=== PATIENT | male | born 1945 ===

== ENCOUNTER 2018-05-09 18:34 | Emergency (ER) | payer OTHER, SELFPAY ==
[2018-05-09] VITALS (18 sets, daily range): BP systolic 137–165; BP diastolic 55–118; PULSE 72–91; RESP 12–30; TEMP 37.1; O2SAT 95–100
--- NOTE | 2018-05-09 18:33 | DI.RAD_ITS ---
SYMPTOM/DIAGNOSIS: LT HIP PAIN, ? DISLOCATION, S/P REDUCTION OF DISLOCATION AP PELVIS: A bilateral total hip prosthesis is demonstrated. There is superior dislocation of the left hip joint prosthesis is noted. There is no evidence of a displaced fracture. The soft tissues are unremarkable. SUMMARY: Dislocation left hip prosthesis. AP PELVIS: The post reduction examination reveals reduction of the left hip dislocation. No fracture is seen.
[2018-05-09] MEDS: fentaNYL 100 MCG/2 ML VIAL IVP (18:35)
--- NOTE | 2018-05-09 18:49 | ED.GENADUL_ITS ---
Discharge Plan Disposition Patient Disposition: STILL A PATIENT Condition: Stable Discharge Details Chief Complaint: Orthopedic Clinical Impression: Dislocation of internal left hip prosthesis [facility] Provider: Jerardo David Discharge Instructions Instructions: Hip Dislocation (ED) Additional Instructions: Activity: You should keep the knees wider than the hips to protect the hip replacement. You have a knee immobilizer to limit knee flexion which will limit hip flexion to prevent further dislocation. You should use an assitive device for the first 2 weeks. Always keep the knees wider than the hips. Follow-up: 2 weeks Medical Decision Making MDM Narrative Medical decision making narrative: 72 yo male with hx of bilateral hip replacements and prior hip dislocations was walking his dog, bent down to pick something up and had onset of severe left hip pain. NO head trauma or loc. I suspect based on his exam he has a hip dislocation, will xray xray confirms dislocation , orthopedics consulted and will plan on closed reduction using procedural sedation, pt agrees with plan and consents to this being done. Pt tolerated procedure well after 250mg propofol IVP given, intact distal senation and pulses and xray confirms successful reduction. Once he is able to ambulate will d/c home. Pt will be signed out to Dr. Leigh pending him being able to ambulate Differential Diagnosis hip dislocation, fx Imaging Data Radiologic Study: Attestation: I personally reviewed and interpreted this imaging study as follows: Imaging: X-Ray My impression: left hip dislocation Radiologist's impression: vrad report reviewed Radiologic Study #2: Attestation: I personally reviewed and interpreted this imaging study as follows: Imaging: X-Ray My impression: successful reduction of left hip prosthesis HPI - General Adult General Mode of arrival: EMS . Date/Time Provider Initiated Documentation: 05/09/18 18:41 . Limitations to Documentation: no limitations . Information obtained by: patient . History of Present Illness 72 year old M presents to the emergency department with the chief complaint of left hip pain, described as severe, with intensity rated at 10. Quality is described as aching, and is localized to the left and lower extremity. Patient reports no radiation. Patient started experiencing this hour(s) (2) and it has been constant. No relieving factors improve symptom(s), No exacerbating factors reported . Patient notes no other symptoms.. Patient did receive the following treatments prior to arrival, none Review of Systems Review of Systems All systems reviewed & are unremarkable except as noted in HPI and below Constitutional Denies chills, Denies fever(s) and Denies weakness Eyes Patient Denies loss of vision ENT Denies change in voice Cardiovascular Denies chest pain and Denies dyspnea Respiratory Denies dyspnea Gastrointestinal Denies abdominal pain, Denies nausea and Denies vomiting Genitourinary Denies dysuria Musculoskeletal Denies joint swelling Integumentary/Breasts Denies rash Neurologic Denies loss of vision and Denies weakness Psychiatric Denies depression Endocrine Denies cold intolerance and Denies heat intolerance Allergic/Immunologic Reports urticaria Exam Const General: no acute distress Orientation: alert HENMA Head: normal to inspection Ears: external ears normal General nose exam: external nose normal Mouth: moist mucous membranes Eyes General: appearance normal, both eyes and all related structures Neck Neck: normal visual inspection Resp Effort & Inspection: normal respiratory effort and able to speak in complete sentences Cardio Rate: regular rate Skin General skin exam: no rashes or lesions noted Neuro General: alert and oriented x3 Extrem General: normal capillary refill and other (no movement of left hip due to pain , normal intact distal sensation and pulses) Psych Mental Status: mental status grossly normal Procedures Procedural Sedation Indication: fracture/dislocation reduction ASA Class: III Time of Last PO Intake: 17:00 Preparation: monitoring specialist applied, pulse oximeter, supplemental O2 applied, suction/airway equipment at bedside and IV secured Fentanyl: IV IV Propofol dose (mg): 250 Patient Tolerated Procedure: well Complications: none
--- NOTE | 2018-05-09 18:57 | DI.VRAD_ITS ---
EXAM: XR Pelvis, 1 or 2 Views CLINICAL HISTORY: 72 years old, male; Pain; Hip pain; Left hip; Prior surgery; Surgery date: 6+ months TECHNIQUE: Frontal view of the pelvis. COMPARISON: No relevant prior studies available. FINDINGS: Bones/joints: Bilateral total hip prostheses. Superior dislocation of the left hip joint prosthesis. No displaced fracture. Soft tissues: Unremarkable. IMPRESSION: Dislocated left hip prosthesis. Dictated and Authenticated by: Raul Flaherty MD. Ordering:PHILIP CHI MD
[2018-05-09] MEDS: Propofol 200 MG/20 ML VIAL 80 MG IVP (19:17)
--- NOTE | 2018-05-09 19:25 | DI.VRAD_ITS ---
EXAM: XR Pelvis, 1 or 2 Views CLINICAL HISTORY: 72 years old, male; Pain; Hip pain; Left hip; Prior surgery; Surgery date: 6+ months; Patient HX: Post reduction TECHNIQUE: Frontal view of the pelvis. COMPARISON: CR XR pelvis AP 05/09/2018 6:33 PM FINDINGS: Bones/joints: Status post reduction of left hip prosthesis. The head of the femoral stem component is superimposed centrally over the acetabular cup. Dictated and Authenticated by: Raul Flaherty MD. Ordering:PHILIP CHI MD
--- NOTE | 2018-05-09 21:26 | W.ORTHOCONSU ---
Date of service: 05/09/18 Time of Service: 18:26 History of Present Illness Chief Complaint: Left Hip Pain and Deformity Narrative: Jorge is a 72-year-old who was walking his dog in [place]. He bent over to pick something up and felt immediate pain and a pop in his left hip. He noted deformity of the left leg was unable to ambulate. Eventually, he was able to get help to the area and he was extricated out of the [place] and brought to the emergency department. At that time he was diagnosed with a left hip dislocation. He reported excruciating pain. He had muscle spasms. He denied any numbness or tingling of the left lower leg. He denies any other trauma. He had a hip replacement performed about 5 or [address] [facility]. He has had a previous dislocation in July of this past year. Otherwise, he has had no issues with the hip. He denies antecedent pain or trauma. Consults Consult date: 05/09/18 Requesting physician: Jerardo David Consult Reason Left hip dislocation Assessment and Plan (1) Dislocation of internal left hip prosthesis: Start date: 05/09/18 Current visit: No Status: Acute Jorge is a 72-year-old who unfortunately has suffered a second dislocation of his left total hip prosthesis. There is able to be reduced without much difficulty after conscious sedation administration by Dr. David. I advised Jorge he will be able to ambulate afterwards. He should use an assistive device until his muscles and soft tissues have a chance to heal. He should keep his knees wider than his hips at all times. To further emphasizes I did place him into a knee immobilizer to prevent excessive hip flexion. His neurovascular exam is intact after reduction. He will follow-up in [place] with his initial surgeon. Review of Systems Review of Systems All systems reviewed & are unremarkable except as noted in HPI and below Exam Narrative Exam Narrative: Jorge is in obvious distress lying supine in the stretcher. His left leg is shortened and significantly internally rotated and adducted. There are no breaks in the skin. There are no signs of ecchymosis. The greater tuberosity is quite prominent. The incision is benign. He endorses full sensation over the superficial and deep peroneal nerves as well as the tibial nerve. He is able to dorsiflex and plantarflex the ankle as well as extend and flex the great toe. The foot is warm and well perfused. There is no crepitus to palpation of the left lower extremity. No pain to palpation anywhere except the proximal left hip. Results Imaging Imaging Studies: X-ray of the left hip on arrival into the emergency department displays a superior dislocation of a left total hip. There is no apparent fracture. Procedures Orthopedic Joint Reduction Left Hip: Time out performed: Yes Side: left Joint reduction location: hip Analgesia: procedural sedation Technique used: direct manipulation Post-reduction neuro exam: intact Post-reduction vascular exam: intact Post-reduction x-ray obtained: Yes Post-reduction x-ray results: reduced Splint applied: Yes (Knee immobilizer as well as pillow between knees for abduction) Patient tolerated procedure: well
== END 2018-05-09 21:06 | disposition still patient (30) ==
PROVIDERS: Emergency Provider Emergency Medicine
DX: T84.021A Dislocation of internal left hip prosthesis, initial encounter (principal); Y83.1 Surgical operation with implant of artificial internal device as the cause of abnormal reaction of the patient, or of later complication, without mention of misadventure at the time of the procedure; Z96.643 Presence of artificial hip joint, bilateral
CPT/HCPCS: 27265; 29505; 96374; 96375; 99253; 99283; 99285; 72170; 99284; L1830

== ENCOUNTER → 2018-05-11 09:58 | Outpatient (BNVA) | payer MEDICARE, SELFPAY | PROVIDERS: Visit Provider Student in an Organized Health Care Education/Training Program | DX: R69 Illness, unspecified (principal) ==

== ENCOUNTER 2021-04-02 19:32 | Emergency (ER) | payer OTHER, SELFPAY ==
[2021-04-02] VITALS (61 sets, daily range): BP systolic 69–132; BP diastolic 14–103; PULSE 58–77; RESP 7–49; TEMP 36.5; O2SAT 87–100
--- NOTE | 2021-04-02 19:30 | RT.EKG_ITS ---
APPROVED REPORT Exam: Resting ECG Reason for Exam: unresponsive Patient Location: E HR:69 bpm ECG Measurements Heart Rate 69 AXIS NJ 194 P 47 QRSd 152 QRS -78 QT 445 T 81 QTc 477 Conclusion Sinus rhythm...normal P axis, V-rate 60- 99 IVCD, consider RBBB...QRSd>120mS, terminal axis(90,270)
[2021-04-02] MEDS: Rocuronium 50 MG/5 ML SYR 70 MG IVP (19:41)
[2021-04-02] MEDS: Normal Saline 1,000 ML 1000 ML IV (19:45)
--- NOTE | 2021-04-02 20:00 | DI.CT_ITS ---
Exam(s) CT HEAD CERVICAL SPINE WO EXAM: CT HEAD CERVICAL SPINE WO CLINICAL HISTORY: cardiac arrest, altered. TECHNIQUE: Imaging Protocol: Axial computed tomography images with coronal and sagittal reformatted images were created and reviewed COMPARISON: No exams were available for comparison FINDINGS: BRAIN: There has been right sided fronto temporal craniotomy. Aneurysm clip seen in the right-side of the s uprasellar region. There is no evidence of intracranial hemorrhage, mass effect, or shift of midline structures. No ext ra-axial fluid collections. Ventricles upper normal size. Impression there is an oblong metallic de nsity in the right suprasellar region which is most probably an aneurysm clip. No evidence of acute intracranial hemorrhage. Postoperative right frontal temporal craniotomy plates and screws noted. N o acute intracranial hemorrhage. CERVICAL SPINE: There is no evidence of fracture nor listhesis. No significant prevertebral soft tissue swelling. Multilevel chronic degenerative disc disease and degenerative facet arthropathy. There is no significant facet joint malalignment. No significant osseous lesions evident. IMPRESSION: Right suprasellar region aneurysm clip.Previous right craniotomy. No acute intracranial findings. Multilevel degenerative changes in the cervical spine. No evidence of cervical spine fracture, malalignment, nor acute compromise of the cervical spinal can al. RADIATION DOSE DELIVERED: 1,282.45mGy.cm Total DLP DATA REPOSITORY: All CT scans at this facility are submitted to the National Radiology Data Registry (NRDR) Dose Index Registry (DIR) with the [employer] ([employer]). RADIATION OPTIMIZATION: All CT scans at this facility use at least one of these dose optimization te chniques: automated exposure control; mA and/or kV adjustment per patient size (includes targeted exa ms where dose is matched to clinical indication); or iterative reconstruction.
--- NOTE | 2021-04-02 20:03 | DI.CT_ITS ---
Exam(s) CT CHEST/ABD/PEL WO EXAM: CT CHEST/ABD/PEL WO CLINICAL HISTORY: altered, cardiac arrest. TECHNIQUE: Imaging Protocol: Axial computed tomography images with coronal and sagittal reformatted images were created and reviewed CONTRAST MATERIAL: Intravenous: none Oral: None COMPARISON: No exams were available for comparison FINDINGS: CHEST: LUNGS: Patient is intubated distal tip of the endotracheal tube in satisfactory position above the ca connie.. There is also an NG tube in place. Its distal tip is in the distal stomach pylorus region an d probably should be retracted into the body of the stomach.. There is a small loculated pneumothorax posterior lower right side. Atelectasis atelectasis is evide nt in the right middle lobe. Also in the posterior basal aspect of the lower lobes. No prominent pl eural effusions. There is mucous at the sharmaine and in both mainstem bronchi. MEDIASTINUM: Small mediastinal retrosternal hematoma. Visualized thyroid unremarkable. CARDIAC: Cardiomegaly. Pacemaker wires. No pericardial effusion.Caliber of the thoracic aorta is wi thin normal limits. OSSEOUS: Subtle fracture of left 3rd rib. Fracture of the anterior left 4th rib. Subtle nondisplace d sternal fracture.. ABDOMEN: There is a tiny bit perihepatic ascites. NG tube is in the distal stomach pylorus region and should be retracted a few cm. LIVER: There are no obvious focal hepatic lesions evident of this noninfused study. GALLBLADDER/BILIARY: Gallbladder surgically absent. CBD is not dilated. PANCREAS: No evidence of obvious pancreatic mass nor dilatation of the pancreatic duct. SPLEEN: Spleen is not enlarged. No obvious intrasplenic lesions. ADRENALS: There are no significant adrenal masses. KIDNEYS: Kidney cysts. The largest in the left kidney measures 3 cm.. No solid renal masses. No ca lculi nor hydronephrosis. ABDOMINAL AORTA: Abdominal aorta is not enlarged. LYMPH NODES: There is no retroperitoneal nor para-aortic adenopathy. ABDOMINAL WALL/GI: No evidence of signature anterior abdominal wall hernia. No bowel obstruction. PELVIS: LYMPH NODES: There is no intrapelvic nor inguinal adenopathy. GI: No evidence of appendicitis.Sigmoid diverticulosis. There is also evidence of acute diverticulit is.. Cannot rule out neoplasm in the sigmoid at this level. There is no abscess at this level altho ugh there is abundant beam hardening artifact from bilateral hip prosthesis obscuring part of this ar ea. Stewart catheter is noted in the bladder. URINARY BLADDER: Obscured by beam hardening artifact from bilateral hip prostheses. There is a Stewart catheter in the nondistended urinary bladder. REPRODUCTIVE: Prostate partially obscured OSSEOUS: No significant osseous lesions. IMPRESSION: 1. There is abnormal thickening of an area of sigmoid consistent with diverticulosis/diverticulitis a nd possible mass. This requires follow-up including colonoscopy. 2. Benign renal cysts. 3. Small amount of ascites. 4. Stewart catheter in the bladder. Bladder is obscured by beam hardening artifact from bilateral hip prostheses. 5. Acute fractures of the left 3rd and 4th ribs as well as nondisplaced sternal fracture. Small don unt of retrosternal mild hemorrhage. Small loculated right base pneumothorax. Atelectasis right middle lobe. Also bilaterally. Multifocal bilateral mucous in the mainstem bronch i and more distal bronchi. RADIATION DOSE DELIVERED: 1,120.43mGy.cm Total DLP DATA REPOSITORY: All CT scans at this facility are submitted to the National Radiology Data Registry (NRDR) Dose Index Registry (DIR) with the [employer] (ACR). RADIATION OPTIMIZATION: All CT scans at this facility use at least one of these dose optimization te chniques: automated exposure control; mA and/or kV adjustment per patient size (includes targeted exa ms where dose is matched to clinical indication); or iterative reconstruction.
[2021-04-02 20:07] LABS: Source Nasal/Nares
[2021-04-02 20:08] LABS: Abs Immature Grans 0.31 10^3/uL (0.0-0.06); Absolute Basophil Count 0.04 10^3/uL (0.0-0.2); Absolute Monocyte Count 1.06 10^3/uL (0.1-0.8); Basophils % 0.3; Eosinophils % 0.1; HCT 44.7 % (40.0-50.0); Immature Grans % 2.2; Lymphocytes % 12.7; MCH 31.7 pg (27.0-33.0); MCHC 31.3 % (32.0-36.0); MCV 101.1 fL (80-95); MPV 10.1 fL (8.0-11.0); Monocytes % 7.4; Neutrophils % 77.3; Nucleated RBC 0 %; Platelet Count 200 10^3/uL (130-400); RBC 4.42 10^6/uL (4.36-5.78); RDW 13.7 % (11.8-14.1); WBC 14.29 10^3/uL (4.4-10.8)
--- NOTE | 2021-04-02 20:15 | DI.RAD_ITS ---
Exam(s) XR PORTABLE CHEST AP EXAM: XR PORTABLE CHEST AP CLINICAL HISTORY: post intubat. TECHNIQUE: 2D digital imaging was performed. COMPARISON: No exams were available for comparison FINDINGS: Chest leads in place. There is an NG tube in place. Distal tip of the endotracheal tube is in [employer] position above the sharmaine. Bipolar left subclavian pacemaker lead tips in are in RV noted. Right chest pad noted. Heart size is normal. The mediastinum is not widened. No prominent infiltrates nor pleural effusions. No pneumothorax. Multiple healed left-sided rib fra ctures are noted. IMPRESSION: No acute pulmonary findings on this single AP portable view of the chest. ETT and NG tube are in satisfactory position DATA REPOSITORY: RADIATION DOSE DELIVERED: All CT scans at this facility use at least one of these dose optimization techniques: automated exposure control; mA and/or kV adjustment per patient size (includes targeted e xams where dose is matched to clinical indication); or iterative reconstruction.
[2021-04-02 20:20] LABS: Absolute Eosinophil Count 0.01 10^3/uL (0.0-0.7); Absolute Lymphocyte Count 1.81 10^3/uL (1.2-3.4); Absolute Neutrophil Count 11.05 10^3/uL (1.2-6.7)
[2021-04-02 20:24] LABS: ALT 259 U/L (16-63); AST 503 U/L (15-37); Albumin 3.7 g/dL (3.4-5.0); Alkaline Phosphatase 167 U/L (46-116); Anion Gap 1.5 mmol/L (3-11); BUN 18 mg/dL (7-18); Bilirubin, Total 1.1 mg/dL (0.2-1.0); CO2 29.5 mmol/L (21.0-32.0); CREATININE 2.7 mg/dL (0.70-1.30); Calcium 8.1 mg/dL (8.5-10.1); Chloride 104 mmol/L (98-107); Estimated GFR 23.28 (mL/min/1.73m2); Glucose 144 mg/dL (74-106); Magnesium 2.5 mg/dL (1.8-2.4); Sodium 135 mmol/L (136-145); Total Protein 7.4 g/dL (6.4-8.2)
[2021-04-02 20:25] LABS: Potassium 8.5 mmol/L (3.5-5.1)
[2021-04-02] MEDS: PROPOFOL 500 MG/50 ML BTL 17.784 MG IVPB (20:25)
[2021-04-02 20:26] LABS: INR 1.2 (0.9-1.1); Prothrombin Time 11.8 sec (9.3-11.0)
[2021-04-02 20:28] LABS: Troponin I 0.12 ng/mL (<0.06)
[2021-04-02 20:32] LABS: *AMPHETAMINES SCREEN URINE Negative (Negative); *BARBITURATES SCREEN URINE Negative (Negative); *BENZODIAZEPINES SCREEN URINE Positive (Negative); Cannabinoids THC Positive (Negative); Cocaine Screen,Urine Negative (Negative); METHADONE URINE SCREEN Negative (Negative); OPIATES URINE SCREEN Positive (Negative)
[2021-04-02 20:33] LABS: Tricyclic Antidepressants Negative (Negative)
[2021-04-02 20:36] LABS: BE (Venous) -4 mmol/L (-2-3); HCO3 (Venous) 26 mmol/L (23-28); O2 Sat (Venous) 44 %; TCO2 (Venous) 26 mmol/L (24-29); pO2 (Venous) 30 mmHg
[2021-04-02 20:39] LABS: pCO2 (Venous) 96 mmHg (41-51); pH (Venous) 7.05 (7.31-7.41)
[2021-04-02 20:41] LABS: ETHANOL BLOOD < 3.0 mg/dL (<3)
[2021-04-02 20:59] LABS: COVID-19 PCR Negative (Negative)
--- NOTE | 2021-04-02 21:10 | DI.VRAD_ITS ---
PROCEDURE INFORMATION: Exam: XR Chest Exam date and time: 04/02/2021 8:21 PM Age: 75 years old Clinical indication: Other: Post intubate TECHNIQUE: Imaging protocol: XR of the chest. Views: 1 view. COMPARISON: No relevant prior studies available. FINDINGS: Tubes, catheters and devices: There is an endotracheal tube in place with the tip residing 5.6 cm proximal to the sharmaine. There is a nasogastric tube which extends at least to the gastric fundus. Lungs: The lungs are clear. There is no pulmonary vascular congestion. Pleural spaces: There are no pleural effusions present. There is no evidence of pneumothorax. Heart/Mediastinum: The cardiomediastinal silhouette is within normal limits. Bones/joints: There appears to be at least partial absence of the left 9th rib. There are multiple old healed left posterolateral rib fractures. IMPRESSION: 1. Endotracheal tube and nasogastric tube as described above. 2. No active cardiopulmonary disease identified. Dictated and Authenticated by: Clarence Marley MD. Ordering:ROLF Camarena MD
--- NOTE | 2021-04-02 21:25 | ED.GENADUL_ITS ---
Discharge Plan Discharge Details Chief Complaint: AMS/LOC Primary Care Provider: None,None ED Provider: Migue Lin Home Meds and New Rx's Prescriptions: No Action Unable to Obtain RF: 0 Medical Decision Making 75-year-old male arrives unresponsive post cardiac arrest with ROSC. Patient with palpable radial pulse low normal blood pressure and a normal sinus rhythm on arrival. Patient unresponsive GCS 3. Patient seen immediately on arrival. iGel in place. I have removed the patient was intubated to protect his airway. Intubation was performed without difficulty without hypoxia. Chest x-ray postintubation reviewed and interpreted by radiology: Endotracheal tube tip at 5.6 cm above the sharmaine. Will advance 1 cm. EKG was reviewed and interpreted by me: Sinus rhythm 69 bpm, right bundle branch block is present. Patient hypotensive and being hemodynamically supported with Levophed with goal map of 65. Patient initially with propofol drip although this was titrated down and converted to Versed given hypotension. CT of the head to assess for intracranial hemorrhage. CT of the chest abdomen pelvis without contrast given GFR to assess for acute surgical pathology. Labs reviewed: VBG consistent severe respiratory acidosis. Elevated troponin. Leukocytosis. Hyperkalemia severe. Elevated creatinine and decreased GFR of 23. Urinalysis concerning for opiates, benzodiazepines, and THC. I will give calcium gluconate, sodium bicarb, insulin 10 units subcutaneous and glucose for severe hyperkalemia. 2144 --on reassessment, patient is following some simple commands. Patient has received total 1500mL crystalloid at this point. --I called and spoke with critical care team at [facility], discussed ED presentation course including diagnostics, they will accept the patient in transfer, accepting physician is Dr. Paul. --CT of the chest reviewed and interpreted by radiology: IMPRESSION: 1. Acute fractures of the left anterior 3rd and 4th ribs, as described above. 2. Acute nondisplaced sternal fracture. There is mild hemorrhage within the anterior mediastinum just posterior to the sternum. 3. Small loculated right basilar pneumothorax. 4. Multifocal bilateral mucous plugging, as described above. Multifocal regions of mild atelectasis. CT of the abdomen and pelvis interpreted by radiology: IMPRESSION: 1. No acute process within the abdomen or pelvis. 2. Distal colonic diverticulosis without clear evidence for diverticulitis. 3. Segmental colonic wall thickening of the proximal aspect of the sigmoid colon could be related to underlying diverticulosis but cannot exclude colonic neoplasm on this exam. Recommend further evaluation with colonoscopy. 4. Small ascites. 5. Renal cysts. CT of the head interpreted by radiology: IMPRESSION: 1. No acute intracranial process identified. 2. Moderate diffuse cerebral volume loss. 3. 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 CT of the cervical spine interpreted by radiology: No acute fractures or subluxation. covid neg. 9 --multiple calls to regional EMS transport agencies and not available to provide interfacility transfer. [facility] air ambulance requested and in route to transport patient to [facility] 2300 --patient having some agitation. Ketamine 1 mg/kg was administered. HPI General Mode of arrival: EMS . Date/Time Provider Initiated Documentation: 04/02/21 19:49 . Limitations to Documentation: altered mental status . Information obtained by: EMS . HPI Narrative: 75-year-old male arrives with EMS post cardiac arrest. Patient was found unresponsive in a motor vehicle with friend/family. Childcare Director EMS noted he was pulseless and started CPR, CPR was performed for 8 to 10 minutes and he had return of spontaneous circulation. No meds were given. I gel was placed. IO was placed right proximal tibia. Additional history obtained from family who notes that he had a some edibles earlier today. Related Data Home Medications Medication Instructions Recorded Confirmed Unknown [Unable to Obtain] 04/02/21 04/02/21 Allergies Allergy/AdvReac Type Severity Reaction Status Date / Time apricot Allergy Intermediate Hives Unverified 04/02/21 22:47 prochlorperazine AdvReac Intermediate Other (See Unverified 04/02/21 22:47 [From Compazine] Comment) General Stated Complaint: AMS/LOC BANG: 1 Review of Systems Unobtainable due to endotracheal tube and Unobtainable due to mental status [facility] Medical History Dislocation of internal left hip prosthesis Social History Smoking risk assessment performed?: No Drug use: Never Do you feel safe in your relationship?: Yes Exam Const General: ill appearing Orientation: other (Unresponsive) HENMT Other: I gel intact Eyes Pupils: fixed and pupil size bilaterally (3) Neck Neck: trachea midline and supple Resp Auscultation: rhonchi lower bilaterally Cardio Rate: regular rate and not tachycardic Rhythm: regular rhythm GI Palpation: soft, not firm and no masses Skin General skin exam: no rashes or lesions noted Neuro General: tone abnormal and other (Unresponsive) Cognition: abnormal cognition Other: GCS 3 Extrem General: no edema Course Vital Signs Vital signs: Vital Signs Temperature 36.5 C 04/02/21 19:52 Pulse 75 04/02/21 19:52 Respiratory Rate 12 04/02/21 19:52 Blood Pressure 87/50 L 04/02/21 19:52 Pulse Oximetry 100 04/02/21 19:52 Temperature 36.5 C 04/02/21 19:52 Temperature Source Skin 04/02/21 19:52 Pulse 75 04/02/21 19:52 Respiratory Rate 12 04/02/21 19:52 Blood Pressure 87/50 L 04/02/21 19:52 Pulse Oximetry 100 04/02/21 19:52 Oxygen Delivery Method Ambu-Bag 04/02/21 19:52 Oxygen Flow Rate 15 04/02/21 19:52 Lab/Test Results Lab/Test Results: Laboratory Tests Range/Units 04/02/21 04/02/21 04/02/21 19:30 19:30 19:30 WBC (4.4-10.8) 10^3/uL 14.29 H RBC (4.36-5.78) 10^6/uL 4.42 Hgb (13.5-17.5) g/dL 14.0 Hct (40.0-50.0) % 44.7 MCV (80-95) fL 101.1 H MCH (27.0-33.0) pg 31.7 MCHC (32.0-36.0) % 31.3 L RDW (11.8-14.1) % 13.7 Plt Count (130-400) 10^3/uL 200 MPV (8.0-11.0) fL 10.1 Immature Gran % 2.2 Neutrophils % 77.3 Lymphocytes % 12.7 Monocytes % 7.4 Eosinophils % 0.1 Basophils % 0.3 Nucleated RBC % % 0 Absolute Neutrophils (1.2-6.7) 10^3/uL 11.05 H Absolute Lymphocytes (1.2-3.4) 10^3/uL 1.81 Absolute Monocytes (0.1-0.8) 10^3/uL 1.06 H Absolute Eosinophils (0.0-0.7) 10^3/uL 0.01 Absolute Basophils (0.0-0.2) 10^3/uL 0.04 PT (9.3-11.0) sec 11.8 H INR (0.9-1.1) 1.2 H VBG pH (7.31-7.41) VBG pCO2 (41-51) mmHg VBG pO2 mmHg VBG HCO3 (23-28) mmol/L VBG Total CO2 (24-29) mmol/L VBG O2 Saturation % VBG Base Excess (-2-3) mmol/L Sodium (136-145) mmol/L 135 L Potassium (3.5-5.1) mmol/L 8.5 H* Chloride (98-107) mmol/L 104 Carbon Dioxide (21.0-32.0) mmol/L 29.5 Anion Gap (3-11) mmol/L 1.5 L BUN (7-18) mg/dL 18 Creatinine (0.70-1.30) mg/dL 2.7 H Estimated GFR/1.73 m2 (mL/min/1.73m2) 23.28 Glucose (74-106) mg/dL 144 H Calcium (8.5-10.1) mg/dL 8.1 L Magnesium (1.8-2.4) mg/dL 2.5 H Total Bilirubin (0.2-1.0) mg/dL 1.1 H AST (15-37) U/L 503 H ALT (16-63) U/L 259 H Alkaline Phosphatase (46-116) U/L 167 H Troponin I (<0.06) ng/mL 0.12 H* Total Protein (6.4-8.2) g/dL 7.4 Albumin (3.4-5.0) g/dL 3.7 Urine Opiates Screen (Negative) Urine Methadone Screen (Negative) Ur Barbiturates Screen (Negative) Ur Tricyclics Screen (Negative) Ur Amphetamines Screen (Negative) U Benzodiazepines Scrn (Negative) Urine Cocaine Screen (Negative) Ur THC Screen (Negative) Ethyl Alcohol (<3) mg/dL < 3.0 COVID-19 Source SARS-CoV-2 (PCR) (Negative) Range/Units 04/02/21 04/02/21 04/02/21 19:52 19:53 20:30 WBC (4.4-10.8) 10^3/uL RBC (4.36-5.78) 10^6/uL Hgb (13.5-17.5) g/dL Hct (40.0-50.0) % MCV (80-95) fL MCH (27.0-33.0) pg MCHC (32.0-36.0) % RDW (11.8-14.1) % Plt Count (130-400) 10^3/uL MPV (8.0-11.0) fL Immature Gran % Neutrophils % Lymphocytes % Monocytes % Eosinophils % Basophils % Nucleated RBC % % Absolute Neutrophils (1.2-6.7) 10^3/uL Absolute Lymphocytes (1.2-3.4) 10^3/uL Absolute Monocytes (0.1-0.8) 10^3/uL Absolute Eosinophils (0.0-0.7) 10^3/uL Absolute Basophils (0.0-0.2) 10^3/uL PT (9.3-11.0) sec INR (0.9-1.1) VBG pH (7.31-7.41) 7.05 L* VBG pCO2 (41-51) mmHg 96 H* VBG pO2 mmHg 30 VBG HCO3 (23-28) mmol/L 26 VBG Total CO2 (24-29) mmol/L 26 VBG O2 Saturation % 44 VBG Base Excess (-2-3) mmol/L -4 L Sodium (136-145) mmol/L Potassium (3.5-5.1) mmol/L Chloride (98-107) mmol/L Carbon Dioxide (21.0-32.0) mmol/L Anion Gap (3-11) mmol/L BUN (7-18) mg/dL Creatinine (0.70-1.30) mg/dL Estimated GFR/1.73 m2 (mL/min/1.73m2) Glucose (74-106) mg/dL Calcium (8.5-10.1) mg/dL Magnesium (1.8-2.4) mg/dL Total Bilirubin (0.2-1.0) mg/dL AST (15-37) U/L ALT (16-63) U/L Alkaline Phosphatase (46-116) U/L Troponin I (<0.06) ng/mL Total Protein (6.4-8.2) g/dL Albumin (3.4-5.0) g/dL Urine Opiates Screen (Negative) Positive A Urine Methadone Screen (Negative) Negative Ur Barbiturates Screen (Negative) Negative Ur Tricyclics Screen (Negative) Negative Ur Amphetamines Screen (Negative) Negative U Benzodiazepines Scrn (Negative) Positive A Urine Cocaine Screen (Negative) Negative Ur THC Screen (Negative) Positive A Ethyl Alcohol (<3) mg/dL COVID-19 Source Nasal/Nares SARS-CoV-2 (PCR) (Negative) Negative Procedures Intubation Time out performed: Yes sedative: none paralytic: Rocuronium Mg Given: 70 Laryngoscope: fiberoptic video scope ET Tube Size: 7.5 Tube Secured Depth (cm): 28 Tube Secured Location: teeth Tube Placement Confirmation: visualized tube passing through cords, equal breath sounds bilaterally, no breath sounds over epigastrum and confirmation by capnometry Patient Tolerated Procedure: well Intubation Complications: none Critical Care Time Critical Care Time Critical Care Time: Yes Total Critical Care Time: 85 Attestation: I spent greater than 85 minutes addressing this patient's immediate life threats. Please see MDM section of note. This time was spent engaged in work directly related to the patient's care, exclusive of separate procedures, and failure to initiate these interventions would have likely resulted in clinically significant or life threatening deterioration in the patient's condition.
[2021-04-02] MEDS: Albuterol/Ipratropium 3 ML UPD VIAL (21:30)
[2021-04-02] MEDS: MIDAZOLAM 50 MG in Normal Saline 90 ML IV (21:43)
--- NOTE | 2021-04-02 21:47 | DI.VRAD_ITS ---
PROCEDURE INFORMATION: Exam: CT Head Without Contrast Exam date and time: 04/02/2021 8:06 PM Age: 75 years old Clinical indication: Other: Cardiac arrest, altered TECHNIQUE: Imaging protocol: Computed tomography of the head without contrast. Radiation optimization: All CT scans at this facility use at least one of these dose optimization techniques: automated exposure control; mA and/or kV adjustment per patient size (includes targeted exams where dose is matched to clinical indication); or iterative reconstruction. COMPARISON: No relevant prior studies available. FINDINGS: Brain: There is no evidence for acute intra-axial or extra-axial hemorrhage. There is no intracranial mass or mass effect. The basilar cisterns are patent. There is moderate diffuse cerebral volume loss. There is normal andino-white differentiation throughout the brain. There is no CT evidence of acute cortical infarct. There is mild patchy hypodensity within the periventricular and subcortical white matter in the frontoparietal regions suggesting mild chronic small vessel ischemic changes. Cerebral ventricles: There is moderate ventriculomegaly in proportion to the moderate diffuse cerebral volume loss. Paranasal sinuses: Visualized sinuses are unremarkable. No fluid levels. Mastoid air cells: Visualized mastoid air cells are well aerated. Vasculature: There is a 1.7 x 0.4 cm oblong metallic foreign body in the region of the suprasellar cistern anteriorly to the right of midline, suggesting an aneurysm clip. Bones/joints: There are postoperative changes of right frontotemporal craniotomy with plates and screws in this region. Soft tissues: Unremarkable. IMPRESSION: 1. No acute intracranial process identified. 2. Moderate diffuse cerebral volume loss. 3. 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 PROCEDURE INFORMATION: Exam: CT Cervical Spine Without Contrast Exam date and time: 04/02/2021 8:06 PM Age: 75 years old Clinical indication: Other: Cardiac arrest, altered TECHNIQUE: Imaging protocol: Computed tomography images of the cervical spine without contrast. Radiation optimization: All CT scans at this facility use at least one of these dose optimization techniques: automated exposure control; mA and/or kV adjustment per patient size (includes targeted exams where dose is matched to clinical indication); or iterative reconstruction. COMPARISON: No relevant prior studies available. FINDINGS: Bones/joints: No acute fracture. Normal alignment. Discs/Spinal canal/Neural foramina: Multilevel moderate spondylosis/hyperostosis throughout the cervical spine. No significant disc protrusion. No severe spinal canal stenosis. Multilevel hypertrophic facet arthrosis of the cervical spine with osseous neural foraminal stenosis from C3-5 bilaterally as well as as on the right at C6-C7. Lungs: Lung apices are normal. Soft tissues: There is an orogastric tube and endotracheal tube in place, the tips residing below the [id number] of the exam. There are foci of air within jugular venous branches in the neck, likely related to peripheral venous access. IMPRESSION: No acute fractures or subluxations. Dictated and Authenticated by: Clarence Marely MD. Ordering:ROLF Camarena MD
[2021-04-02] MEDS: Calcium Gluconate 4.65 MEQ/10 ML VIAL 4.65 MG IVP (21:58)
[2021-04-02] MEDS: Dextrose 50%-Water 25 GM/50 ML SYR (21:58)
[2021-04-02] MEDS: Sodium Bicarbonate 50 MEQ/50 ML SYR IVP (22:05)
[2021-04-02] MEDS: Insulin REGULAR-Human 100 UNITS/ML UNIT 10 UNITS SC (22:05)
--- NOTE | 2021-04-02 22:12 | DI.VRAD_ITS ---
PROCEDURE INFORMATION: Exam: CT Chest Without Contrast; Diagnostic Exam date and time: 04/02/2021 8:59 PM Age: 75 years old Clinical indication: Other: Altered, cardiac arrest TECHNIQUE: Imaging protocol: Diagnostic computed tomography of the chest without contrast. Radiation optimization: All CT scans at this facility use at least one of these dose optimization techniques: automated exposure control; mA and/or kV adjustment per patient size (includes targeted exams where dose is matched to clinical indication); or iterative reconstruction. COMPARISON: SC XR pelvis AP 05/09/2018 7:05 PM FINDINGS: Tubes, catheters and devices: There is a dual lead pacemaker in place with right ventricular and right atrial leads. There is an endotracheal tube in place with its tip at the level of the aortic arch. There is a nasogastric tube in place with its tip within the gastric antrum. Lungs: There is [id number] dependent mucus within the trachea and mainstem bronchi as well as mucous plugging within the bronchus intermedius as well as the right middle lobe and right lower lobe bronchi and segmental branches. There is also mucous plugging within the left lower lobe bronchus and basilar segmental branches. There is wedge-shaped airspace opacity within the dependent aspect of the right middle lobe, consistent with atelectasis. There is also mild atelectasis within the posterior bases of both lower lobes. There are a few small bulla at the lung apices as well as mild paraseptal and centrilobular emphysema. Pleural spaces: There are tiny bilateral pleural effusions. There is a small pneumothorax posterior medially at the right base having a thickness of 1 cm, as seen on axial image 524, series 4. Heart: Heart size is normal. There is no pericardial effusion. Aorta: Unremarkable. No aortic aneurysm. Lymph nodes: There is no evidence of lymphadenopathy. Bones/joints: There is a hairline nondisplaced acute fracture of the left anterior 3rd rib on image 285, series 3 as well as a minimally displaced acute fracture of the anterior left 4th rib on image 377, series 3 with approximately 4 mm displacement across the fracture. There is also an oblique nondisplaced sternal fracture, centered around image 369 series 3 as well as sagittal image 42, series 6. There are multiple old healed left posterolateral stool rib fractures as well as a nonunited chronic fracture of the left posterolateral 9th rib. Soft tissues: There is a focal region of soft tissue attenuation within the anterior mediastinum just posterior to the sternum, likely representing hemorrhage associated the sternal fracture, measuring up to 2.1 x 1.5 cm, as seen on image 439, series 3. IMPRESSION: 1. Acute fractures of the left anterior 3rd and 4th ribs, as described above. 2. Acute nondisplaced sternal fracture. There is mild hemorrhage within the anterior mediastinum just posterior to the sternum. 3. Small loculated right basilar pneumothorax. 4. Multifocal bilateral mucous plugging, as described above. Multifocal regions of mild atelectasis. PROCEDURE INFORMATION: Exam: CT Abdomen And Pelvis Without Contrast Exam date and time: 04/02/2021 8:59 PM Age: 75 years old Clinical indication: Other: Altered, cardiac arrest TECHNIQUE: Imaging protocol: Computed tomography of the abdomen and pelvis without contrast. Radiation optimization: All CT scans at this facility use at least one of these dose optimization techniques: automated exposure control; mA and/or kV adjustment per patient size (includes targeted exams where dose is matched to clinical indication); or iterative reconstruction. COMPARISON: SC XR pelvis AP 05/09/2018 7:05 PM FINDINGS: Liver: Normal. No mass. Gallbladder and bile ducts: There has been a cholecystectomy. Pancreas: The pancreas is moderately atrophic but appears otherwise unremarkable without focal lesion or evidence of acute inflammation. Spleen: Normal. No splenomegaly. Adrenal glands: Normal. No mass. Kidneys and ureters: There are few small renal cysts measuring up to 3 cm. Stomach and bowel: There is distal colonic diverticulosis without clear evidence for acute diverticulitis. There is segmental wall thickening of the proximal sigmoid colon centered around image 107, series 2, which could be related to the underlying diverticulosis but cannot exclude colonic neoplasm on this exam. Appendix: No evidence of appendicitis. Intraperitoneal space: There is small ascites. Vasculature: The aorta and iliac arteries demonstrate moderate atherosclerotic calcification without aneurysm formation. Lymph nodes: Unremarkable. No enlarged lymph nodes. Urinary bladder: There is a Stewart catheter within the bladder. Reproductive: Unremarkable as visualized. Bones/joints: There is moderate facet arthrosis at multiple mid and lower lumbar levels. There is hardware of bilateral total hip arthroplasty, only partially imaged. The visualized hardware appears intact. There is multilevel moderate spondylosis throughout the lumbar spine. No lumbar spine or pelvic fractures are identified. Soft tissues: There are postoperative changes of the anterior midline abdominal wall suggesting prior hernia repair. No recurrent hernia is identified. IMPRESSION: 1. No acute process within the abdomen or pelvis. 2. Distal colonic diverticulosis without clear evidence for diverticulitis. 3. Segmental colonic wall thickening of the proximal aspect of the sigmoid colon could be related to underlying diverticulosis but cannot exclude colonic neoplasm on this exam. Recommend further evaluation with colonoscopy. 4. Small ascites. 5. Renal cysts. COMMENTS: THIS REPORT CONTAINS FINDINGS THAT MAY BE CRITICAL TO PATIENT CARE. The exam findings were verbally communicated by me to MELODIE GRIGSBY via telephone conference at 10:09 PM EDT on 04/02/2021. The findings were acknowledged and understood. Dictated and Authenticated by: Clarence Marley MD. Ordering:ROLF Camarena MD
[2021-04-02] MEDS: fentaNYL 1,000 MCG in Normal Saline 80 ML 7.4 MCG IV (22:32)
[2021-04-02 22:42] LABS: BE (Venous) -2 mmol/L (-2-3); HCO3 (Venous) 26 mmol/L (23-28); O2 Sat (Venous) 52 %; TCO2 (Venous) 25 mmol/L (24-29); pO2 (Venous) 31 mmHg
[2021-04-02 22:44] LABS: pCO2 (Venous) 75 mmHg (41-51); pH (Venous) 7.16 (7.31-7.41)
[2021-04-02] MEDS: Ketamine 500 MG/10 ML VIAL 74 MG IVP (23:54)
--- NOTE | 2021-04-03 00:08 | NUR.NOTE ---
Nursing Note: pt arrives via EMS unresponsive with i-gel in place and IO to left tibia. Pt given rocuronium 70 mg for induction (at approx 194). Intubated at approx. 194 with a 7.5 ETT and 27 at the teeth. Lower dentures removed, uppers left in place. Stewart 16 Fr inserted at approx 1949. 16 Fr OG tube inserted at approx 1957. 18 G IV started to left AC at approx 1950. 18G IV to right upper arm started at approx 193. 18G IV to right FA at approx 2030. Pt blood pressure remains low -see VS. Levophed drip started at approx 2044. Propofol initiated for sedation, but paused soon after for very low pressures. Pt taken for CT. Levophed continued to be titrated in Diagnostic imaging. Pt returns at approx 2130 back to ER room. Pt started on versed drip at approx 2145. Levophed continued to be titrated up for more desirable MAP. Fentanyl added as second IV sedation med started at approx 2235. Report given to [facility] at approx 2240. Ketamine dose of [address] Lin via IVP at approx 2300. [facility] arrives at approx 2310 to transport pt to [facility]. Sedation meds changed to [facility] meds. IV sedation meds wasted with LILLIE Sullivan.
== END 2021-04-02 23:39 | disposition short-term general hospital (02) ==
PROVIDERS: Physician Assistant; Emergency Provider Student in an Organized Health Care Education/Training Program
DX: I46.9 Cardiac arrest, cause unspecified (principal); E87.5 Hyperkalemia; R40.2432 Glasgow coma scale score 3-8, at arrival to emergency department; F19.20 Other psychoactive substance dependence, uncomplicated; M96.89 Other intraoperative and postprocedural complications and disorders of the musculoskeletal system; S27.0XXA Traumatic pneumothorax, initial encounter; S22.42XA Multiple fractures of ribs, left side, initial encounter for closed fracture; S22.20XA Unspecified fracture of sternum, initial encounter for closed fracture; J98.11 Atelectasis; Y84.8 Other medical procedures as the cause of abnormal reaction of the patient, or of later complication, without mention of misadventure at the time of the procedure; R45.1 Restlessness and agitation
CPT/HCPCS: 31500; 71250; 80053; 80307; 82805; 87635; 93005; 94640; 96361; 96365; 96366; 96368; 96372; 96375; 99291; 99292; 70450; 71045; 72125; 74176; 80320; 83735; 84484; 85025; 85610; 93010; J0610; J3010; J3490; J7620